=== PATIENT | female | born 1965 | race Caucasian/White ===

== ENCOUNTER 2025-01-07 21:39 | Emergency (ER) | payer OTHER, SELFPAY ==
--- NOTE | 2025-01-07 21:47 | DI.RAD.S_ITS ---
PROCEDURE: XR CHEST 1V INDICATIONS: Chest Pain TECHNIQUE: One view of the chest was acquired. COMPARISON: None. FINDINGS: Surgical changes and devices: None. Lungs and pleura: Lungs are clear. No pleural effusions or pneumothorax. Mediastinum: Mediastinal contours appear normal. Heart size is normal. Bones and chest wall: No suspicious bony lesions. Overlying soft tissues appear unremarkable. IMPRESSION: No acute cardiopulmonary abnormalities or focal consolidation. Dictated by: Karl Marte M.D. on 01/07/2025 at 23:00 Approved by: Karl Marte M.D. on 01/07/2025 at 23:00
[2025-01-07 21:49] VITALS: BP 204/102; PULSE 96; RESP 18; TEMP 37; O2SAT 99; BMI 17.2
--- NOTE | 2025-01-07 21:51 | EKG_ITS ---
[address] [id number] [address] [place] [address] Test Date: 2025-01-07 Pat Name: Claudia Lemus Department: [facility] Room: Gender: Female Analytics Specialist: jamil : 1965 Requested By: Order Number: [id number] Reading MD: Measurements Intervals [place] Rate: 89 P: 108 AK: 132 QRS: 113 QRSD: 94 T: 127 QT: 350 QTc: 425 Interpretive Statements Suspect arm lead reversal, interpretation assumes no reversal Normal sinus rhythm Anterolateral infarct , age undetermined
[2025-01-07 22:09] VITALS: PULSE 79; O2SAT 99
[2025-01-07 22:12] VITALS: BP 174/97; PULSE 81; RESP 14; O2SAT 100
[2025-01-07 22:15] LABS: Add Manual Diff / Slide Review NO; Hematocrit 34.5 % (36-46); Hemoglobin 12.0 g/dL (12.0-16.0); Lymphocytes Absolute Auto 2800 /uL (1100-4500); Mean Corpuscular HGB Conc 34.7 % (30-36); Mean Corpuscular Hemoglobin 33.6 PG (26-34); Mean Corpuscular Volume 96.9 fL (80-100); Platelet Count 219 X10^3/uL (150-400)
[2025-01-07 22:21] LABS: INR 1.3 (0.9-1.3); Prothrombin Time 14.3 SECONDS (9.4-12.5)
[2025-01-07 22:23] LABS: PTT Partial Thromboplastin Tim 31 SECONDS (25.1-36.5)
[2025-01-07 22:24] LABS: Alanine Aminotransferase 19 IU/L (<35); Albumin 4.6 g/dL (3.5-5.0); Albumin Globulin Ratio 1.8 (1.0-2.8); Alkaline Phosphatase 96 U/L (38-126); Blood Urea Nitrogen 23 mg/dL (7-17); Calcium 9.5 mg/dL (8.4-10.2); Carbon Dioxide 32 mmol/L (22-32); Chloride 101 mmol/L (98-107); Creatine Kinase 68 U/L (30-135); Estimated Glomerular Filt Rate > 60 mL/min (>60); Globulin 2.6 g/dL (1.7-4.1); Glucose 129 mg/dL (70-99); HEMOLYSIS < 15 (0-50); Lipase 88 U/L (23-300); Magnesium 2.2 mg/dL (1.6-2.3); Potassium 3.9 mmol/L (3.4-5.1); Sodium 141 mmol/L (137-145); Total Protein 7.2 g/dL (6.3-8.2)
[2025-01-07 22:30] VITALS: BP 148/96; PULSE 79; RESP 16; O2SAT 98
[2025-01-07 22:36] LABS: Troponin I < 0.012 ng/mL (0.01-0.034)
[2025-01-07 23:00] VITALS: BP 145/86; PULSE 78; RESP 15; O2SAT 97
[2025-01-07 23:04] LABS: NT-proBNP (BNP-Adult 18+) 120 pg/mL (<125)
[2025-01-07 23:30] VITALS: PULSE 71; RESP 15; O2SAT 99
[2025-01-07] MEDS: ACETAMINOPHEN IV 1,000 MG/100 ML VIAL 400 MG IV (23:34)
[2025-01-07] MEDS: ONDANSETRON 4 MG/2 ML INJ IV (23:34)
[2025-01-08] VITALS: PULSE 67; RESP 24; O2SAT 98
--- NOTE | 2025-01-08 00:13 | ED.HA ---
HPI - Headache General Chief Complaint: Headache Stated Complaint: headache/blurry vision/confusion/palpitations Time Seen by Provider: 01/07/25 21:50 Source: patient, RN notes reviewed and old records reviewed Mode of arrival: Ambulatory Limitations: no limitations History of Present Illness HPI Narrative: 59-year-old female no reported medical issues presents with complaint of headache, blurry vision describes feeling confused having nausea and vomiting intermittently for the past 3-4 days. Patient states she also has a sensation of palpitations. She denies any syncope. She describes a headache she states it has a tight squeezing feeling she described as a gradual onset. She states she has felt like she is ?hung over? for the past several days although she states she has not. She noted some nausea or vomiting today and 3 days ago. She also has a little bit of mild diarrhea. She denies any chest pain or shortness of breath. She noticed sensation of palpitations at 1 point but not currently. She denies any new numbness tingling or weakness. No difficulty with ambulation. She denies changes to speech. She denies any fevers. She states she noticed a foul odor with her urine in the past week little bit of dysuria. She denies any abdominal back or flank pain. Patient states no daily medications. Has had a prior . Describes allergy to morphine difficulty breathing. Former smoker, alcohol occasionally, no marijuana or recreational drugs. Dr. Johnson is her primary care physician. Related Data Allergies Allergy/AdvReac Type Severity Reaction Status Date / Time morphine Allergy Severe Difficulty Verified 01/07/25 21:56 Breathing Review of Systems Review of Systems ROS Unobtainable: All systems reviewed & are unremarkable except as noted in HPI and below Patient History Social History Smoking Status: Never smoker Smoking Status: Never smoker Exam Narrative Exam Narrative: GEN: well nourished, well appearing female, alert and oriented x 3, patient appears to be in mild distress. HEENT: Atraumatic, pupils are equal round reactive to light, extraocular movements are intact, nares are clear, there is no conjunctival pallor. Throat is clear without any exudates, erythema, tonsillar enlargement or uvular deviation, no facial droop HEART: Regular rate and rhythm without murmur, clicks, rubs. Pulses are equal in upper and lower extremities LUNGS:Lungs clear to auscultation, no wheezes, rales, crackles, chest moves symmetrically ABD:bowel sounds normal, soft, non-tender, no guarding, rebound, rigidity, no masses noted, no hepatosplenomegaly :No CVA tenderness MSCL: Non-tender, no muscle atrophy, muscles strength 5/5 upper and lower extremities, full range of motion, normal gait NEURO:CN 2-12 intact, sensation normal. No dysarthria, no aphasia. Initial Vital Signs Initial Vital Signs: Vital Signs Temperature 98.6 F 01/07/25 21:49 Pulse Rate 96 H 01/07/25 21:49 Respiratory Rate 18 01/07/25 21:49 Blood Pressure 204/102 H 01/07/25 21:49 Pulse Oximetry 99 01/07/25 21:49 Oxygen Delivery Method Room Air 01/07/25 21:49 Course Orders Ordered: ED Orders 01/07/25 21:47 XR chest 1V Stat EKG-12 Lead Stat 01/07/25 22:00 Complete Blood Count AUTO DIFF Stat Comprehensive Metabolic Panel Stat Lipase Stat Magnesium Stat NT-proBNP (BNP-Adult 18+) Stat PTT Partial Thromboplastin Abr[place] Stat Prothrombin Time INR Stat Troponin & CK Cardiac Panel Stat 01/07/25 23:09 CT head/brain wo con Stat Discontinued Medications Aspirin (Aspirin 81 Mg Chew Tab) 324 mg PO NOW ONE Stop: 01/07/25 21:48 Last Admin: 01/07/25 22:59 Dose: Not Given Documented By: [place] Hydromorphone HCl (Hydromorphone Hcl 0.5 Mg/0.5 Ml Syringe) 0.5 mg IV Q15MIN PRN PRN Reason: Pain, Last Admin: 01/08/25 02:11 Dose: 0.5 mg Documented By: Admin: 01/08/25 00:01 Dose: 0.5 mg Documented By: [place] Acetaminophen (Ofirmev) 1,000 mg in 100 mls @ 400 mls/hr IV NOW ONE Stop: 01/07/25 23:29 Last Infusion: 01/08/25 00:02 Dose: Infused Documented By: Admin: 01/07/25 23:34 Dose: 400 mls/hr Documented By: [place] Ondansetron HCl (Ondansetron 4 Mg/2 Ml Inj) 4 mg IV NOW ONE Stop: 01/07/25 23:16 Last Admin: 01/07/25 23:34 Dose: 4 mg Documented By: [place] Ondansetron HCl (Ondansetron 4 Mg Odt Prepack) 1 bottle MISC DIRECTED ONE Stop: 01/08/25 01:22 Last Admin: 01/08/25 02:11 Dose: 1 bottle Documented By: HNG Vital Signs Vital signs: Vital Signs - 8 hr 01/07/25 21:49 01/07/25 22:09 01/07/25 22:12 Temperature 98.6 F Pulse Rate 96 H 79 Respiratory Rate 18 Blood Pressure 204/102 H 174/97 H Pulse Oximetry 99 99 Oxygen Delivery Method Room Air 01/07/25 22:12 01/07/25 22:30 01/07/25 22:30 Temperature Pulse Rate 81 79 Respiratory Rate 14 16 Blood Pressure 148/96 H Pulse Oximetry 100 98 Oxygen Delivery Method 01/07/25 23:00 01/07/25 23:00 01/07/25 23:30 Temperature Pulse Rate 78 71 Respiratory Rate 15 15 Blood Pressure 145/86 H Pulse Oximetry 97 99 Oxygen Delivery Method 01/08/25 00:00 01/08/25 00:30 01/08/25 01:00 Temperature Pulse Rate 67 67 72 Respiratory Rate 24 18 21 Blood Pressure Pulse Oximetry 98 98 98 Oxygen Delivery Method 01/08/25 01:04 01/08/25 01:04 01/08/25 01:30 Temperature Pulse Rate 68 63 Respiratory Rate 19 21 Blood Pressure 155/106 H Pulse Oximetry 95 100 Oxygen Delivery Method Room Air 01/08/25 02:00 Temperature Pulse Rate 69 Respiratory Rate 29 H Blood Pressure Pulse Oximetry 100 Oxygen Delivery Method MDM - Headache Lab Data 01/07/25 22:00 01/07/25 22:00 Labs: Lab Results 01/07/25 Range/Units 22:00 WBC 6.2 (4.5-11.0) X10^3/uL RBC 3.56 L (4.0-5.2) X10^6/uL Hgb 12.0 (12.0-16.0) g/dL Hct 34.5 L (36-46) % MCV 96.9 (80-100) fL MCH 33.6 (26-34) PG MCHC 34.7 (30-36) % RDW 14.1 (11.6-14.8) % Plt Count 219 (150-400) X10^3/uL Neut % (Auto) 36.2 L (50-75) % Lymph % (Auto) 45.6 H (25-40) % [place] % (Auto) 10.7 (3-14) % Eos % (Auto) 6.7 H (2-4) % Baso % (Auto) 0.8 (0-2) % Neut # (Auto) 2300 (2978-4917) /uL Lymph # (Auto) 2800 (6139-0698) /uL [place] # (Auto) 700 (0-900) /uL Eos # (Auto) 400 (0-450) /uL Baso # (Auto) 100 (0-100) /uL PT 14.3 H (9.4-12.5) SECONDS INR 1.3 (0.9-1.3) APTT 31 (25.1-36.5) SECONDS Sodium 141 (137-145) mmol/L Potassium 3.9 (3.4-5.1) mmol/L Chloride 101 (98-107) mmol/L Carbon Dioxide 32 (22-32) mmol/L BUN 23 H (7-17) mg/dL Creatinine 0.81 (0.52-1.04) mg/dL Estimated GFR > 60 (>60) mL/min BUN/Creatinine Ratio 28.4 H (6-22) Glucose 129 H (70-99) mg/dL Calcium 9.5 (8.4-10.2) mg/dL Magnesium 2.2 (1.6-2.3) mg/dL Total Bilirubin 0.5 (0.2-1.3) mg/dL AST 31 (14-36) IU/L ALT 19 (<35) IU/L Alkaline Phosphatase 96 (38-126) U/L Total Creatine Kinase 68 (30-135) U/L Troponin I < 0.012 (0.01-0.034) ng/mL NT-Pro-B Natriuret Pep 120 (<125) pg/mL Total Protein 7.2 (6.3-8.2) g/dL Albumin 4.6 (3.5-5.0) g/dL Globulin 2.6 (1.7-4.1) g/dL Albumin/Globulin Ratio 1.8 (1.0-2.8) Lipase 88 (23-300) U/L Urine Dip Bedside Urine Glucose Negative Bedside Urine Bilirubin - Negative Bedside Urine Ketone - Negative Urine Specific [place] 1.010 Bedside Urine Occult Blood - Negative Bedside Urine pH 8 Bedside Urine Protein - Negative Bedside Urine Urobilinogen - Negative Bedside Urine Nitrite - Negative Bedside Urine Leukocytes - Negative Esterase MDM Narrative Medical decision making narrative: Labs show white count of 6.2 hemoglobin of 12 platelets of 219, predominance of lymphocytes. Coags are normal, BUN 23 electrolytes are otherwise appropriate glucose is 129 LFTs are normal troponins less than 0.012 with a BNP of 120. Chest x-ray shows no acute cardiopulmonary abnormality or focal consolidation Head CT without acute intracranial abnormalities or acute calvarial fractures, age-related senescent changes sequela of chronic small-vessel ischemic disease. No evidence of mass or or mass effect. Point of care urine is negative. Patient received Zofran, acetaminophen, dilaudid. Patient was initially quite hypertensive but improved prior to receiving any medication. Patient ambulating without difficulty, normal speech no acute neurologic changes appreciated on exam. Patient is afebrile. Discussed with the patient this time I would like her to follow up with primary care for rechecked with return precautions. Discharge Plan Departure Patient Disposition: Home Clinical Impression: Headache, Nausea & vomiting Instructions: DI for Headache Activity Restrictions/Additional Instructions: Follow up with your physician. Please call in the morning for an appointment. You can take Zofran 1 tablet every 6 hours as needed. Please return if you develop fevers, new changes, persistent vomiting, lightheadedness or passing out, or other new or concerning changes. Stand Alone Forms: Patient Portal/API
[2025-01-08 00:30] VITALS: PULSE 67; RESP 18; O2SAT 98
[2025-01-08 01:00] VITALS: PULSE 72; RESP 21; O2SAT 98
[2025-01-08 01:04] VITALS: BP 155/106; PULSE 68; RESP 19; O2SAT 95
[2025-01-08 01:30] VITALS: PULSE 63; RESP 21; O2SAT 100
[2025-01-08 02:00] VITALS: PULSE 69; RESP 29; O2SAT 100
[2025-01-08] MEDS: ONDANSETRON 4 MG ODT PREPACK 1 BOTTLE MISC (02:11)
== END 2025-01-08 02:43 | disposition home or self-care (01) ==
PROVIDERS: Emergency Medicine; Emergency Provider Emergency Medicine
DX: R51.9 Headache, unspecified (principal); H53.8 Other visual disturbances; R11.2 Nausea with vomiting, unspecified; R41.0 Disorientation, unspecified
CPT/HCPCS: 36415; 70450; 71045; 80053; 81003; 82550; 83690; 83735; 83880; 84484; 85025; 85610; 85730; 93005; 96365; 96375; 96376; 99284; J0131; J1171; J2405